=== PATIENT | male | born 1955 | race Caucasian/White ===

== ENCOUNTER → 2016-06-12 | Outpatient (CLI) | payer OTHER ==
[~2016-06-12] MED LIST: ACTOS15 MG PO; HYDRALAZINE HCL50 MG PO; HYDROCHLOROTHIA25 MG PO; LANTUS100 UNIT/1 SQ; LASIX20 MG PO; LIPITOR TAB 2020 MG PO; LISINOPRIL30 MG PO; NORCO 10-325 T1 EACH PO; NORVASC 5 MG TAB5 MG PO; NOVOLOG 10100 UNITS1 INJ; PYRIDOXINE HCL50 MG PO; TYLENOL 500 MG500 MG PO; VITAMIN B12-FO1 EACH PO; VITAMIN D35000 UNI1 PO
[2016-06-12 13:06] LABS: BUN/CREATININE RATIO 18 (0-10)
== END ==
LOC: LAB 11:26
PROVIDERS: Internal Medicine Nephrology
DX: N18.3 Chronic kidney disease, stage 3 (moderate) (principal)
CPT/HCPCS: 36415; 80048; 81001; 82043; 82570